=== PATIENT | male | born 1975 | race American Indian/Alaskan Native ===

== ENCOUNTER 2019-12-24 18:00 | Emergency (ER) | payer SELFPAY ==
[2019-12-24] MEDS ORDERED: ASPIRIN 81 MG TAB CHEW PO ONE (18:03)
--- NOTE | 2019-12-24 18:12 | Event Note ---
ED Screening Note Date of service: 12/24/19 Time: 18:11 ED Screening Note: c/o chest pain x today worsening over the past hour denies past medical hx +SOB +swelling of feet pt holding left chest This initial assessment/diagnostic orders/clinical plan/treatment(s) is/are subject to change based on patients health status, clinical progression and re- assessment by fellow clinical providers in the ED. Further treatment and workup at subsequent clinical providers discretion. Patient/guardian urged not to elope from the ED as their condition may be serious if not clinically assessed and managed. Initial orders include: labs xr ekg
[2019-12-24 18:48] LABS: Basophils # (Auto) 0.1 K/mm3 (0.0-0.1); Eosinophils % (Auto) 0.7 % (0.0-4.3); Hematocrit 42.1 % (35.5-45.6); Hemoglobin 14.6 gm/dl (11.8-15.2); Lymphocytes # (Auto) 2.4 K/mm3 (1.2-5.4); Lymphocytes % (Auto) 34.7 % (13.4-35.0); Mean Corpuscular HGB Conc 35 % (32-34); Mean Corpuscular Volume 99 fl (84-94); Monocytes # (Auto) 0.6 K/mm3 (0.0-0.8); Monocytes % (Auto) 9.2 % (0.0-7.3); Platelet Count 292 K/mm3 (140-440); Red Blood Count 4.25 M/mm3 (3.65-5.03); Red Cell Distribution Width 13.6 % (13.2-15.2)
[2019-12-24 19:06] LABS: BUN/Creatinine Ratio 8; Blood Urea Nitrogen 8 mg/dL (9-20); Calcium 9.1 mg/dL (8.4-10.2); Hemolysis Index 9
--- NOTE | 2019-12-24 19:09 | XRay Report ---
CHEST 2 VIEWS 1851 INDICATION / CLINICAL INFORMATION: Chest Pain COMPARISON: None available. FINDINGS: SUPPORT DEVICES: None. HEART / MEDIASTINUM: No significant abnormality. LUNGS / PLEURA: No significant pulmonary or pleural abnormality. No pneumothorax. ADDITIONAL FINDINGS: No significant additional findings. IMPRESSION: No significant acute abnormality Signer Name: Tobin Shook MD Signed: 12/24/2019 7:05 PM Workstation Name: [id number]
[2019-12-24 19:10] LABS: Alanine Aminotransferase 80 units/L (7-56); Albumin 4.7 g/dL (3.9-5)
[2019-12-24 19:30] LABS: Bilirubin,Direct < 0.2 mg/dL (0-0.2)
[2019-12-24] MEDS ORDERED: IPRATROPIUM/ALBUTEROL SULFATE 3 ML AMPUL.NEB IH ONE (22:32)
[2019-12-24] MEDS ORDERED: KETOROLAC 30 MG/1 ML INJ IM ONE (22:32)
--- NOTE | 2019-12-24 22:36 | Emergency Department Report ---
ED Chest Pain HPI - General Chief Complaint: Chest Pain Stated Complaint: CHEST PAINS Time Seen by Provider: 12/24/19 22:22 Source: patient Mode of arrival: Ambulatory Limitations: No Limitations - History of Present Illness Initial Comments: This is a 44-year-old -[place] male presents to the emergency department from home with complaint of midsternal chest pain and shortness of breath that started this morning upon waking. He says that the pain is currently a 6 out of 10 in intensity and is a sharp pain/sensation. It is exacerbated by certain movements of his torso. No known alleviating factors. He did not take anything for symptoms prior to presentation. He denies any radiation of the pain, back pain, nausea, vomiting, diaphoresis, cough, lower extremity swelling. He denies any past medical history. He is a tobacco smoker but denies any illicit drug use. No family history of early heart attack or cardiac events. No recent travel or sick contacts at home. - Related Data Previous Rx's Medication Instructions Recorded Last Taken Type Albuterol Mdi (or & Nicu Only) 2 puff IH QID PRN #8.5 gram 12/24/19 Unknown Rx [ProAir HFA Inhaler] Allergies Allergy/AdvReac Type Severity Reaction Status Date / Time No Known Allergies Allergy Unverified 12/24/19 18:05 Heart Score - HEART Score History: Slightly suspicious EKG: Normal Age: < 45 Risk factors: 1-2 risk factors Troponin: < normal limit HEART Score: 1 - Critical Actions Critical Actions: 0-3 pts:0.9-1.7%risk of adverse cardiac event.Candidate for discharge ED Review of Systems ROS: Stated complaint: CHEST PAINS Other details as noted in HPI Comment: All other systems reviewed and negative Constitutional: denies: chills, fever Eyes: denies: eye pain, vision change ENT: denies: ear pain, throat pain Respiratory: shortness of breath. denies: cough Cardiovascular: chest pain. denies: palpitations, edema Gastrointestinal: denies: abdominal pain, vomiting Genitourinary: denies: dysuria, discharge Musculoskeletal: denies: back pain, arthralgia Skin: denies: rash, lesions Neurological: denies: headache, weakness ED Past Medical Hx - Past Medical History Previous Medical History?: No - Surgical History Past Surgical History?: No - Medications Home Medications: Home Medications Medication Instructions Recorded Confirmed Last Taken Type Albuterol Mdi (or & Nicu Only) 2 puff IH QID PRN #8.5 gram 12/24/19 Unknown Rx [ProAir HFA Inhaler] ED Physical Exam - General Limitations: No Limitations - Other Other exam information: GENERAL: The patient is well-developed well-nourished. HENT: Normocephalic. Atraumatic. Patient has moist mucous membranes. EYES: Extraocular motions are intact. NECK: Supple. Trachea is midline. CHEST/LUNGS: Clear to auscultation. There is no respiratory distress noted. There is reproducible tenderness to palpation along the midsternal chest wall. No crepitus or deformity. HEART/CARDIOVASCULAR: Regular. There is no tachycardia. There is no murmur. ABDOMEN: Abdomen is soft, nontender. Patient has normal bowel sounds. SKIN: Skin is warm and dry. NEURO: The patient is awake, alert, and oriented. The patient is cooperative. The patient has no focal neurologic deficits. Normal speech. MUSCULOSKELETAL: There is no tenderness or deformity. There is no limitation range of motion. ED Course Vital Signs 12/24/19 12/24/19 12/24/19 18:22 22:46 23:51 Temperature 98.8 F 98.9 F Pulse Rate 88 73 Pulse Rate [ 80 Bilateral Throughout] Respiratory 24 73 H Rate Respiratory 18 Rate [Bilateral Throughout] Blood Pressure 174/108 151/93 [Right] O2 Sat by Pulse 97 99 Oximetry 12/25/19 00:02 Temperature Pulse Rate Pulse Rate [ Bilateral Throughout] Respiratory 18 Rate Respiratory Rate [Bilateral Throughout] Blood Pressure [Right] O2 Sat by Pulse 99 Oximetry ABRAM score - Abram Score Age > 65: (0) No Aspirin use within the Past 7 Days: (0) No 3 or more CAD Risk Factors: (0) No 2 or more Angina events in past 24 hrs: (1) Yes Known CAD with more than 50% Stenosis: (0) No Elevated Cardiac Markers: (0) No ST Deviation Greater than 0.5mm: (0) No ABRAM Score: 1 ED Medical Decision Making - Lab Data Result diagrams: 12/24/19 18:28 12/24/19 18:28 - EKG Data -: EKG Interpreted by Me EKG shows normal: sinus rhythm, axis, intervals, QRS complexes, ST-T waves Rate: normal - EKG Data When compared to previous EKG there are: previous EKG unavailable Interpretation: normal EKG - Radiology Data Radiology results: image reviewed interpreted by me: Chest x-ray does not show any acute process. There are no pleural effusions, obvious pneumonia and there is no pneumothorax. No significant cardiomegaly. - Medical Decision Making This patient presents to the emergency department with midsternal chest pain and shortness of breath that has been going on since this morning. On examination, his heart and lung sounds are normal to auscultation. His chest pain is reproducible to palpation of the midsternal chest wall without crepitus or deformity. An EKG was completed that does not have any morphology consistent with ST elevation NE, or any dysrhythmia. Labs have been unremarkable including CBC, metabolic panel and negative troponins x2. Patient was given a breathing treatment and a shot of Toradol and upon reevaluation he says he is feeling greatly improved. Vital signs are reassuring throughout his ED course including being afebrile. The patient is low on the heart and ABRAM scores. He does not have any risk factors consistent with thromboembolic disease. He is low on the Wells score criteria and negative on the pulmonary embolism rule out criteria. For all these reasons the patient appears safe for discharge home at this time. His contact information has been sent over to the [facility] and vascular moore, and someone from their office should be contacting him shortly for close outpatient follow-up as per our hospitals low risk chest pain protocol. He will return to the emergency department with any worsening of his symptoms or with any acute distress. Critical Care Time: No Critical care attestation.: If time is entered above; I have spent that time in minutes in the direct care of this critically ill patient, excluding procedure time. ED Disposition Clinical Impression: Elevated blood pressure reading Chest pain Qualifiers: Chest pain type: unspecified Qualified Code(s): R07.9 - Chest pain, unspecified Disposition: DC-01 TO HOME OR SELFCARE Is pt being admited?: No Condition: Stable Instructions: Chest Pain (ED), How to Stop Smoking (ED), Costochondritis (ED) Additional Instructions: Please follow-up with a primary care physician in the next few days. Please quit smoking. I have sent your contact information over to the [facility] and vascular center, and someone from their office should be contacting you shortly for close outpatient follow-up. Just in case, I have also given you a referral for one of their cardiologists, Dr. Hendricks, so that you can make an appointment if necessary. Return to the emergency department with any worsening of your symptoms, new or concerning symptoms not addressed during this current emergency department visit, or with any acute distress. Prescriptions: Albuterol Mdi (or & Nicu Only) [ProAir HFA Inhaler] 2 puff IH QID PRN #8.5 gram PRN Reason: Shortness Of Breath Referrals: PRIMARY CARE, [Primary Care Provider] - 2-3 Days MERI HENDRICKS MD [Staff Physician] - 2-3 Days Forms: Work/School Release Form(ED) Time of Disposition: 23:39
[2019-12-24 23:53] VITALS: BP 151/93
== END 2019-12-25 00:05 | disposition home or self-care (01) ==
LOC: ED 18:00
DX: R07.89 Other chest pain (principal); R06.02 Shortness of breath
CPT/HCPCS: 36415; 71046; 80048; 80076; 83880; 84484; 85025; 93005; 94644; 96372; 99285; J1885; 94640

== ENCOUNTER 2021-01-09 12:13 | Emergency (ER) | payer SELFPAY ==
[2021-01-09] MEDS ORDERED: SODIUM CHLORIDE 0.9% 1000 ML 1,000 ML IV ONE (12:21)
[2021-01-09] MEDS ORDERED: ONDANSETRON 4 MG/2 ML INJ IV ONE (12:21)
[2021-01-09] MEDS ORDERED: HYDROmorphone 1 MG/1 ML INJ IV ONE ×3 (12:22→15:06)
--- NOTE | 2021-01-09 12:29 | Emergency Department Report ---
ED General Adult HPI - General Chief complaint: Abdominal Pain Stated complaint: ABD PAIN PUI?: No Time Seen by Provider: 01/09/21 12:28 Source: patient, RN notes reviewed Mode of arrival: Ambulatory Limitations: No Limitations - History of Present Illness Initial comments: The patient is a 45-year-old gentleman. He has a history of alcohol induced pancreatitis. He was admitted to [facility] in the past for alcohol induced pancreatitis The patient presents to the ER today with complaint of "I think I have pancreatitis." The patient reports that he has been abstinent of alcohol, up until recently. He states that he has a bilateral mid back pain, which started yesterday, and radiates around to his left upper quadrant, and epigastric region, similar to prior episodes of pancreatitis. He was treated with hydromor phone, which much improved his symptoms. At the moment, he denies headache, neck pain, left-sided and central chest pain, he has right-sided chest discomfort, he still has persistent epigastric and b ilateral mid back abdominal pain, and no testicular pain or urinary symptoms. He denies Covid symptoms. -: Gradual, hour(s), days(s) Location: back Radiation: abdomen Quality: aching, other (Sharp) Consistency: constant Improves with: medication Worsens with: movement - Related Data Previous Rx's Medication Instructions Recorded Last Taken Type Albuterol Mdi (or & Nicu Only) 2 puff IH QID PRN #8.5 gram 12/24/19 Unknown Rx [ProAir HFA Inhaler] Allergies Allergy/AdvReac Type Severity Reaction Status Date / Time No Known Allergies Allergy Verified 01/09/21 12:24 ED Review of Systems ROS: Stated complaint: ABD PAIN Other details as noted in HPI Constitutional: denies: fever Eyes: denies: eye discharge ENT: denies: epistaxis Respiratory: denies: cough Cardiovascular: chest pain Gastrointestinal: abdominal pain, nausea, vomiting Genitourinary: denies: dysuria Musculoskeletal: back pain Neurological: denies: weakness Psychiatric: anxiety Hematological/Lymphatic: denies: easy bleeding ED Past Medical Hx - Past Medical History Previous Medical History?: No Additional medical history: denies - Surgical History Past Surgical History?: No Additional Surgical History: denies - Social History Smoking Status: Current Every Day Smoker - Medications Home Medications: Home Medications Medication Instructions Recorded Confirmed Last Taken Type Albuterol Mdi (or & Nicu Only) 2 puff IH QID PRN #8.5 gram 12/24/19 Unknown Rx [ProAir HFA Inhaler] ED Physical Exam - General Limitations: No Limitations General appearance: alert, in no apparent distress - Head Head exam: Present: atraumatic, normocephalic - Eye Eye exam: Present: normal appearance, EOMI. Absent: nystagmus - ENT ENT exam: Present: normal exam, normal orophraynx, mucous membranes moist, normal external ear exam - Neck Neck exam: Present: normal inspection, full ROM. Absent: tenderness, meningismus - Respiratory Respiratory exam: Present: normal lung sounds bilaterally. Absent: respiratory distress, wheezes, rales, rhonchi, stridor, decreased breath sounds - Cardiovascular Cardiovascular Exam: Present: regular rate, normal rhythm, normal heart sounds. Absent: bradycardia, tachycardia, irregular rhythm, systolic murmur, diastolic murmur, rubs, gallop - GI/Abdominal GI/Abdominal exam: Present: soft, tenderness, other (There is epigastric tenderness). Absent: distended, guarding, rebound, rigid, pulsatile mass - Rectal Rectal exam: Present: deferred - Extremities Exam Extremities exam: Present: normal inspection, full ROM, other (2+ pulses noted in the bilateral upper and lower extremities. There is no palpable cord. negative Homans sign. Muscular compartments are soft. The pelvis is stable.). Absent: calf tenderness - Back Exam Back exam: Present: normal inspection, full ROM. Absent: tenderness, CVA tenderness (R), CVA tenderness (L), paraspinal tenderness, vertebral tenderness - Neurological Exam Neurological exam: Present: alert, oriented X3, other (No facial droop. Tongue midline. Extraocular movements intact bilaterally. Facial sensation intact to light touch in V1, V2, V3 distribution bilaterally. 5 and a 5 strength in 4 extremities. Sensation intact to light touch in 4 extremities.). Absent: motor sensory deficit - Psychiatric Psychiatric exam: Present: anxious - Skin Skin exam: Present: warm, dry, intact, normal color. Absent: rash ED Course Vital Signs 01/09/21 01/09/21 01/09/21 12:21 12:47 13:01 Temperature 98.6 F Pulse Rate 68 72 68 Respiratory 18 24 20 Rate Blood Pressure 140/95 159/95 Blood Pressure 157/99 [Left] O2 Sat by Pulse 100 100 96 Oximetry 01/09/21 01/09/21 01/09/21 13:31 14:01 14:16 Temperature 98.5 F Pulse Rate 62 60 58 L Respiratory 17 20 20 Rate Blood Pressure 161/95 166/99 Blood Pressure 166/98 [Left] O2 Sat by Pulse 100 100 100 Oximetry - Reevaluation(s) Reevaluation #1: 01/09/21 14:15 Differential diagnosis, including but not limited to: Pancreatitis, GERD, gastritis, hiatal hernia, renal colic, pyelonephritis, Assessment and plan: 45-year-old gentleman, who is not currently tachycardic, tachypneic or hypoxic, who denies DVT and pulmonary embolism risk factors, who is low risk by Wells criteria for pulmonary embolism, who is PERC negative, low risk for major adverse cardiac event as per heart score, with known history of pancreatitis, presenting with prototypical pancreatitis symptoms, after consuming alcohol recently. He required hydromorphone for pain. Lipase is elevated. He denies urinary symptoms. EKG unremarkable for acute findings. Urinalysis, CT scan abdomen pelvis pending. Reassess after these have been completed. I discussed this with the patient. He articulated understanding. All questions answered. Reassess after acquisition of urinalysis and CT scan. 01/09/21 15:51 CT scan confirms pancreatitis. Awaiting urinalysis. Patient required multiple rounds of hydromorphone administration. He meets criteria for admission hospitalization secondary to acute pancreatitis, suggested on history, suggestion of laboratory studies and on CAT scan. Admitted to the care of [facility] physician, Dr. Hoff. Defer to inpatient team to follow-up on urinalysis. ED Medical Decision Making - Lab Data Result diagrams: 01/09/21 12:36 01/09/21 12:36 Vital Signs 01/09/21 12:47 Pulse Rate 72 Respiratory 24 Rate Blood Pressure 157/99 [Left] O2 Sat by Pulse 100 Oximetry Lab Results 01/09/21 01/09/21 01/09/21 Range/Units 12:36 12:36 12:36 WBC 7.1 (4.5-11.0) K/mm3 RBC 4.42 (3.65-5.03) M/mm3 Hgb 15.4 H (11.8-15.2) gm/dl Hct 44.7 (35.5-45.6) % MCV 101 H (84-94) fl MCH 35 H (28-32) pg MCHC 35 H (32-34) % RDW 13.2 (13.2-15.2) % Plt Count 311 (140-440) K/mm3 Lymph % (Auto) 19.6 (13.4-35.0) % Stevens % (Auto) 10.3 H (0.0-7.3) % Eos % (Auto) 0.4 (0.0-4.3) % Baso % (Auto) 0.7 (0.0-1.8) % Lymph # (Auto) 1.4 (1.2-5.4) K/mm3 Stevens # (Auto) 0.7 (0.0-0.8) K/mm3 Eos # (Auto) 0.0 (0.0-0.4) K/mm3 Baso # (Auto) 0.0 (0.0-0.1) K/mm3 Seg Neutrophils % 69.0 (40.0-70.0) % Seg Neutrophils # 4.9 (1.8-7.7) K/mm3 Sodium 136 L (137-145) mmol/L Potassium 4.4 (3.6-5.0) mmol/L Chloride 97.2 L (98-107) mmol/L Carbon Dioxide 22 (22-30) mmol/L Anion Gap 21 mmol/L BUN 7 L (9-20) mg/dL Creatinine 0.8 (0.8-1.3) mg/dL Estimated GFR > 60 ml/min BUN/Creatinine Ratio 9 % Glucose 129 H (75-100) mg/dL Calcium 9.5 (8.4-10.2) mg/dL Phosphorus 3.70 (2.5-4.5) mg/dL Magnesium 2.10 (1.7-2.3) mg/dL Total Bilirubin 0.40 (0.1-1.2) mg/dL AST 32 (5-40) units/L ALT 25 (7-56) units/L Alkaline Phosphatase 82 (35-129) units/L Total Protein 7.9 (6.3-8.2) g/dL Albumin 4.9 (3.9-5) g/dL Albumin/Globulin Ratio 1.6 % Lipase 446 H (13-60) units/L - EKG Data -: EKG Interpreted by [place] EKG shows normal: sinus rhythm Rate: normal - EKG Data 01/09/21 14:15 EKG is interpreted at 13: 10 Sinus rhythm, 61 bpm. Normal axis, normal intervals, high left ventricular voltage. Poor R wave progression. Abnormal EKG. Early repolarization. Not a STEMI - Radiology Data Radiology results: pending, report reviewed, image reviewed CT ABDOMEN AND PELVIS WITH CONTRAST INDICATION / CLINICAL INFORMATION: LUQ pain and tenderness.. TECHNIQUE: Axial CT images were obtained through the abdomen and pelvis after 100 cc Omnipaque [address] scans at this location are performed using CT dose reduction for ALARA by means of automated exposure control. COMPARISON: None available. FINDINGS: LOWER CHEST: No significant abnormality. LIVER: Hepatic steatosis. Scattered hypodensities throughout the liver are too small to characterize but likely represent cysts. GALLBLADDER: Mi ldly hyperdense material in the gallbladder likely represents sludge. No evidence of cholecystitis. BILE DUCTS: No significant abnormality. PANCREAS: There is peripancreatic stranding. No necrosis. There is unorganized mild fluid at the inferior aspect of pancreas. SPLEEN: No significant abnormality. ADRENALS: No significant abnormality. RIGHT KIDNEY / URETER: No significant abnormality. LEFT KIDNEY / URETER: No significant abnormality. STOMACH / SMALL BOWEL: No significant abnormality. COLON: No significant abnormality. APPENDIX: No significant abnormality. PERITONEUM: Mild free fluid around pancreas. No free air. LYMPH NODES: No significant adenopathy. AORTA / ARTERIES: No significant abnormality. IVC / VEINS: No significant abnormality. URINARY BLADDER: Mild urinary bladder wall thickening is nonspecific. REPRODUCTIVE ORGANS: No significant abnormality. ADDITIONAL FINDINGS: None. SKELETAL SYSTEM: No significant abnormality. IMPRESSION: 1. Findings suggestive of acute interstitial edematous pancreatitis. There is unorganized fluid inferior to the pancreas. No necrosis. 2. Hyperdense material in the gallbladder likely represents sludge. No evidence of cholecystitis. 3. Hepatic steatosis. Scattered hypodensities throughout liver are too small to characterize but likely represent cysts. 4. Mild thickening of urinary bladder wall is nonspecific. Recommend clinical correlation. Signer Name: Lucho Agee MD Signed: 01/09/2021 2:16 PM Workstation Name: [id number] Critical care attestation.: If time is entered above; I have spent that time in minutes in the direct care of this critically ill patient, excluding procedure time. ED Disposition Clinical Impression: Acute pancreatitis Disposition: 09 ADMITTED INPATIENT Is pt being admited?: Yes Does the pt Need Aspirin: No Condition: Good Referrals: PRIMARY CARE,MD [Primary Care Provider] - 3-5 Days
--- NOTE | 2021-01-09 12:30 | Event Note ---
ED Screening Note Date of service: 01/09/21 Time: 12:23 ED Screening Note: 45-year-old -[place] male presents to the emergency room in severe abdominal distress. Patient states that he has a history of pancreatitis and does admit to drinking. Patient has been to [place] and they told him that there is something wrong with his pancreas. Patient states that he does drink alcohol. He denies any nausea vomiting at this time. reports that he has a history of hypertension and is supposed to be on amlodipine but has not been taking it. This initial assessment/diagnostic orders/clinical plan/treatment(s) is/are subject to change based on patients health status, clinical progression and re- assessment by fellow clinical providers in the ED. Further treatment and workup at subsequent clinical providers discretion. Patient/guardian urged not to elope from the ED as their condition may be serious if not clinically assessed and managed. Initial orders include: CBC CMP lipase Phos mag INT CT abdomen with contrast normal saline morphine and Zofran has been ordered. Discussed case with Dr. Berg
[2021-01-09 13:17] LABS: Basophils % (Auto) 0.7 % (0.0-1.8); Eosinophils % (Auto) 0.4 % (0.0-4.3); Hematocrit 44.7 % (35.5-45.6); Hemoglobin 15.4 gm/dl (11.8-15.2); Lymphocytes # (Auto) 1.4 K/mm3 (1.2-5.4); Lymphocytes % (Auto) 19.6 % (13.4-35.0); Mean Corpuscular HGB Conc 35 % (32-34); Mean Corpuscular Volume 101 fl (84-94); Monocytes # (Auto) 0.7 K/mm3 (0.0-0.8); Monocytes % (Auto) 10.3 % (0.0-7.3); Platelet Count 311 K/mm3 (140-440); Red Blood Count 4.42 M/mm3 (3.65-5.03); Red Cell Distribution Width 13.2 % (13.2-15.2)
[2021-01-09 13:39] LABS: Alanine Aminotransferase 25 units/L (7-56); Albumin 4.9 g/dL (3.9-5); BUN/Creatinine Ratio 9; Blood Urea Nitrogen 7 mg/dL (9-20); Calcium 9.5 mg/dL (8.4-10.2); Hemolysis Index 16
--- NOTE | 2021-01-09 15:20 | Cat Scan Report ---
CT ABDOMEN AND PELVIS WITH CONTRAST INDICATION / CLINICAL INFORMATION: LUQ pain and tenderness.. TECHNIQUE: Axial CT images were obtained through the abdomen and pelvis after 100 cc Omnipaque [address] scans at this location are performed using CT dose reduction for ALARA by means of automated exposure control. COMPARISON: None available. FINDINGS: LOWER CHEST: No significant abnormality. LIVER: Hepatic steatosis. Scattered hypodensities throughout the liver are too small to characterize but likely represent cysts. GALLBLADDER: Mildly hyperdense material in the gallbladder likely represents sludge. No evidence of c holecystitis. BILE DUCTS: No significant abnormality. PANCREAS: There is peripancreatic stranding. No necrosis. There is unorganized mild fluid at the infe rior aspect of pancreas. SPLEEN: No significant abnormality. ADRENALS: No significant abnormality. RIGHT KIDNEY / URETER: No significant abnormality. LEFT KIDNEY / URETER: No significant abnormality. STOMACH / SMALL BOWEL: No significant abnormality. COLON: No significant abnormality. APPENDIX: No significant abnormality. PERITONEUM: Mild free fluid around pancreas. No free air. LYMPH NODES: No significant adenopathy. AORTA / ARTERIES: No significant abnormality. IVC / VEINS: No significant abnormality. URINARY BLADDER: Mild urinary bladder wall thickening is nonspecific. REPRODUCTIVE ORGANS: No significant abnormality. ADDITIONAL FINDINGS: None. SKELETAL SYSTEM: No significant abnormality. IMPRESSION: 1. Findings suggestive of acute interstitial edematous pancreatitis. There is unorganized fluid infer ior to the pancreas. No necrosis. 2. Hyperdense material in the gallbladder likely represents sludge. No evidence of cholecystitis. 3. Hepatic steatosis. Scattered hypodensities throughout liver are too small to characterize but like ly represent cysts. 4. Mild thickening of urinary bladder wall is nonspecific. Recommend clinical correlation. Signer Name: Lucho Agee MD Signed: 01/09/2021 3:16 PM Workstation Name: [id number]
[2021-01-09 16:30] LABS: Bilirubin,Urine NEG (Negative); Blood,Urine SM (Negative); Color,Urine Straw (Yellow); Mucus,Urine FEW /HPF; Protein,Urine <15 mg/dL mg/dL (Negative); Urobilinogen,Urine < 2.0 mg/dL (<2.0)
--- NOTE | 2021-01-09 18:30 | Event Note ---
Date: 01/09/21 45 YO Male with ETOH Dependence, Chronic recurrent ETOH Pancreatitis presents to ED for evaluation. Patient acknowledges ingestion of alcohol over the last 48 hours. Patient transported [facility] via private vehicle for further care and evaluation of the aforementioned symptoms. The patient seen and evaluated in the emergency department. All lab and imaging studies reviewed. Patient found to have symptoms consistent with chronic recurrent pancreatitis secondary to alcohol ingestion, and alcohol gastritis. Patient treated with IV fluid resusc itation therapy and supportive care with resolution of symptoms. Patient medically optimized and back to usual state of health. Patient tolerating oral diet. Patient counseled regarding abstinence from alcohol. Patient medically optimized and discharged home and instructed to follow-up with meeting with Alcoholics Anonymous today. Patient seen and evaluated prior to discharge no significant physical exam findings. ED Physical Exam - General Limitations: No Limitations General appearance: alert, in no apparent distress - Head Head exam: Present: atraumatic, normocephalic - Eye Eye exam: Present: normal appearance, EOMI. Absent: nystagmus - ENT ENT exam: Present: normal exam, normal orophraynx, mucous membranes moist, normal external ear exam - Neck Neck exam: Present: normal inspection, full ROM. Absent: tenderness, meningismus - Respiratory Respiratory exam: Present: normal lung sounds bilaterally. Absent: respiratory distress, wheezes, rales, rhonchi, stridor, decreased breath sounds - Cardiovascular Cardiovascular Exam: Present: regular rate, normal rhythm, normal heart sounds. Absent: bradycardia, tachycardia, irregular rhythm, systolic murmur, diastolic murmur, rubs, gallop - GI/Abdominal GI/Abdominal exam: Present: soft, nontender nondistended positive bowel sounds. ). Absent: distended, guarding, rebound, rigid, pulsatile mass, flank discoloration - Rectal Rectal exam: Present: deferred - Extremities Exam Extremities exam: Present: normal inspection, full ROM, other (2+ pulses noted in the bilateral upper and lower extremities. There is no palpable cord. negative Homans sign. Muscular compartments are soft. The pelvis is stable.). Absent: calf tenderness - Back Exam Back exam: Present: normal inspection, full ROM. Absent: tenderness, CVA tenderness (R), CVA tenderness (L), paraspinal tenderness, vertebral tenderness - Neurological Exam Neurological exam: Present: alert, oriented X3, other (No facial droop. Tongue midline. Extraocular movements intact bilaterally. Facial sensation intact to light touch in V1, V2, V3 distribution bilaterally. 5 and a 5 strength in 4 extremities. Sensation intact to light touch in 4 extremities.). Absent: motor sensory deficit - Psychiatric Psychiatric exam: Unremarkable - Skin Skin exam: Present: warm, dry, intact, normal color. Absent: rash
[2021-01-09 20:05] VITALS: BP 151/82
--- NOTE | 2021-01-11 11:38 | Electrocardiograph Report ---
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
== END 2021-01-09 19:00 | disposition admitted as inpatient to this hospital (09) ==
LOC: ED 12:13
DX: K85.90 Acute pancreatitis without necrosis or infection, unspecified (principal); F17.200 Nicotine dependence, unspecified, uncomplicated; Z79.899 Other long term (current) drug therapy
CPT/HCPCS: 36415; 74177; 80053; 81001; 83690; 83735; 84100; 84484; 85025; 93005; 96361; 96374; 96375; 96376; 99284; J1170; J2405; J7030; Q9967

== ENCOUNTER 2021-04-01 08:07 | Observation (INO) | payer SELFPAY ==
[2021-04-01] MEDS ORDERED: ONDANSETRON 4 MG/2 ML INJ IV ONE (08:52)
[2021-04-01] MEDS ORDERED: SODIUM CHLORIDE 0.9% 1000 ML 1,000 ML IV ONE (08:52)
[2021-04-01] MEDS ORDERED: MORPHINE 4 MG/1 ML INJ IV ONE ×2 (08:52→12:55)
[2021-04-01] MEDS ORDERED: PANTOPRAZOLE 40 MG INJ IV ONE (08:53)
--- NOTE | 2021-04-01 08:53 | Emergency Department Report ---
ED General Adult HPI - General Chief complaint: Abdominal Pain Stated complaint: It feels like my pancreas Time Seen by Provider: 04/01/21 08:40 Source: patient, RN notes reviewed, old records reviewed Mode of arrival: Ambulatory Limitations: No Limitations - History of Present Illness Initial comments: The patient was evaluated in the emergency department for symptoms described in the history of present illness. He/she was evaluated in the context of the global COVID-19 pandemic, which necessitated consideration that the patient might be at risk for infection with the virus that causes COVID-19. Institutional protocols and algorithms that pertain to the evaluation of patients at risk for COVID-19 are in a state of rapid change based on inform ation released by regulatory bodies including the CDC and federal and state organizations. These policies and algorithms were followed during the patient's care in the emergency department. Please note that these policies, procedures and recommendations changed on a rapid basis. The patient is a 46-year-old gentleman, who I have evaluated in the past, who presents to the ER with a complaint of epigastric abdominal pain that radiates to the back, and substernal chest pressure. He denies travel, surgery, immobilization, DVT/PE risk factors. He reports this feels similar to his prior episodes of pancreatitis. He denies urinary symptoms, and denies recent alcohol consumption -: Gradual, days(s) Location: abdomen Radiation: back Quality: aching Consistency: constant Improves with: rest Worsens with: movement - Related Data Previous Rx's Medication Instructions Recorded Last Taken Type Albuterol Mdi (or & Nicu Only) 2 puff IH QID PRN #8.5 gram 12/24/19 Unknown Rx [ProAir HFA Inhaler] Folic Acid [Folvite] 1 mg PO QDAY #30 tablet 01/09/21 Unknown Rx Multivitamin 1 each PO DAILY #30 tablet 01/09/21 Unknown Rx Oxycodone HCl [oxyCODONE] 10 mg PO BID #20 tablet 01/09/21 Unknown Rx Pantoprazole [Protonix TAB] 20 mg PO QDAY #30 tablet 01/09/21 Unknown Rx Sucralfate [Carafate] 1 gm PO ACHS #30 tablet 01/09/21 Unknown Rx Thiamine [Vitamin B-1] 100 mg PO QDAY #30 tablet 01/09/21 Unknown Rx Allergies Allergy/AdvReac Type Severity Reaction Status Date / Time No Known Allergies Allergy Verified 04/01/21 08:16 ED Review of Systems ROS: Stated complaint: ABD PAIN,SOB X2 DAYS Other details as noted in HPI Constitutional: denies: fever Eyes: denies: vision change ENT: denies: epistaxis Respiratory: denies: cough Cardiovascular: chest pain Gastrointestinal: abdominal pain, nausea Genitourinary: denies: dysuria Musculoskeletal: back pain Neurological: denies: weakness ED Past Medical Hx - Past Medical History Additional medical history: denies - Surgical History Additional Surgical History: denies - Social History Smoking Status: Current Every Day Smoker - Medications Home Medications: Home Medications Medication Instructions Recorded Confirmed Last Taken Type Albuterol Mdi (or & Nicu Only) 2 puff IH QID PRN #8.5 gram 12/24/19 Unknown Rx [ProAir HFA Inhaler] Folic Acid [Folvite] 1 mg PO QDAY #30 tablet 01/09/21 Unknown Rx Multivitamin 1 each PO DAILY #30 tablet 01/09/21 Unknown Rx Oxycodone HCl [oxyCODONE] 10 mg PO BID #20 tablet 01/09/21 Unknown Rx Pantoprazole [Protonix TAB] 20 mg PO QDAY #30 tablet.dr 01/09/21 Unknown Rx Sucralfate [Carafate] 1 gm PO ACHS #30 tablet 01/09/21 Unknown Rx Thiamine [Vitamin B-1] 100 mg PO QDAY #30 tablet 01/09/21 Unknown Rx ED Physical Exam - General Limitations: No Limitations General appearance: alert, in no apparent distress - Head Head exam: Present: atraumatic, normocephalic - Eye Eye exam: Present: normal appearance, EOMI. Absent: nystagmus - ENT ENT exam: Present: normal exam, normal orophraynx, mucous membranes moist, normal external ear exam - Neck Neck exam: Present: normal inspection, full ROM. Absent: tenderness, meningismus - Respiratory Respiratory exam: Present: normal lung sounds bilaterally. Absent: respiratory distress, wheezes, rales, rhonchi, stridor, decreased breath sounds - Cardiovascular Cardiovascular Exam: Present: regular rate, normal rhythm, normal heart sounds. Absent: bradycardia, tachycardia, irregular rhythm, systolic murmur, diastolic murmur, rubs, gallop - GI/Abdominal GI/Abdominal exam: Present: soft, tenderness, guarding. Absent: distended, rebo und, rigid, pulsatile mass - Rectal Rectal exam: Present: deferred - Extremities Exam Extremities exam: Present: normal inspection, full ROM, other (2+ pulses noted in the bilateral upper and lower extremities. There is no palpable cord. negative Homans sign. Muscular compartments are soft. The pelvis is stable.). Absent: pedal edema, calf tenderness - Back Exam Back exam: Present: normal inspection, full ROM. Absent: tenderness, CVA tenderness (R), CVA tenderness (L), paraspinal tenderness, vertebral tenderness - Neurological Exam Neurological exam: Present: alert, oriented X3, normal gait, other (No facial droop. Tongue midline. Extraocular movements intact bilaterally. Facial sensation intact to light touch in V1, V2, V3 distribution bilaterally. 5 and a 5 strength in 4 extremities. Sensation intact to light touch in 4 extremities.). Absent: motor sensory deficit - Psychiatric Psychiatric exam: Present: anxious - Skin Skin exam: Present: warm, dry, intact, normal color. Absent: rash ED Course Vital Signs 04/01/21 04/01/21 04/01/21 10:09 13:04 13:07 Temperature 98.1 F Pulse Rate 70 Respiratory 18 14 14 Rate Blood Pressure 160/98 [Left] O2 Sat by Pulse 100 Oximetry ED Medical Decision Making - Lab Data Result diagrams: 04/01/21 08:21 04/01/21 08:21 Vital Signs 04/01/21 10:09 Respiratory 18 Rate Lab Results 04/01/21 04/01/21 04/01/21 Range/Units 08:21 08:21 09:06 WBC 10.3 (4.5-11.0) K/mm3 RBC 5.05 H (3.65-5.03) M/mm3 Hgb 16.7 H (11.8-15.2) gm/dl Hct 49.6 H (35.5-45.6) % MCV 98 H (84-94) fl MCH 33 H (28-32) pg MCHC 34 (32-34) % RDW 12.8 L (13.2-15.2) % Plt Count 359 (140-440) K/mm3 Lymph % (Auto) 15.6 (13.4-35.0) % [place] % (Auto) 10.2 H (0.0-7.3) % Eos % (Auto) 0.2 (0.0-4.3) % Baso % (Auto) 0.2 (0.0-1.8) % Lymph # (Auto) 1.6 (1.2-5.4) K/mm3 [place] # (Auto) 1.1 H (0.0-0.8) K/mm3 Eos # (Auto) 0.0 (0.0-0.4) K/mm3 Baso # (Auto) 0.0 (0.0-0.1) K/mm3 Seg Neutrophils % 73.8 H (40.0-70.0) % Seg Neutrophils # 7.6 (1.8-7.7) K/mm3 Sodium 131 L (137-145) mmol/L Potassium 4.1 (3.6-5.0) mmol/L Chloride 92.5 L (98-107) mmol/L Carbon Dioxide 21 L (22-30) mmol/L Anion Gap 22 mmol/L BUN 10 (9-20) mg/dL Creatinine 0.8 (0.8-1.3) mg/dL Estimated GFR > 60 ml/min BUN/Creatinine Ratio 13 % Glucose 100 (75-100) mg/dL Calcium 10.4 H (8.4-10.2) mg/dL Magnesium (1.7-2.3) mg/dL Total Bilirubin 0.50 (0.1-1.2) mg/dL AST 19 (5-40) units/L ALT 11 (7-56) units/L Alkaline Phosphatase 80 (35-129) units/L Total Creatine Kinase (55-170) units/L Troponin T < 0.010 (0.00-0.029) ng/mL Total Protein 8.6 H (6.3-8.2) g/dL Albumin 4.8 (3.9-5) g/dL Albumin/Globulin Ratio 1.3 % Lipase (13-60) units/L Urine Color (Yellow) Urine Turbidity (Clear) Urine pH (5.0-7.0) Ur Specific [place] (1.003-1.030) Urine Protein (Negative) mg/dL Urine Glucose (UA) (Negative) mg/dL Urine Ketones (Negative) mg/dL Urine Blood (Negative) Urine Nitrite (Negative) Urine Bilirubin (Negative) Urine Urobilinogen (<2.0) mg/dL Ur Leukocyte Esterase (Negative) Urine WBC (Auto) (0.0-6.0) /HPF Urine RBC (Auto) (0.0-6.0) /HPF U Epithel Cells (Auto) (0-13.0) /HPF Urine Mucus /HPF 04/01/21 04/01/21 Range/Units 09:06 Unknown WBC (4.5-11.0) K/mm3 RBC (3.65-5.03) M/mm3 Hgb (11.8-15.2) gm/dl Hct (35.5-45.6) % MCV (84-94) fl MCH (28-32) pg MCHC (32-34) % RDW (13.2-15.2) % Plt Count (140-440) K/mm3 Lymph % (Auto) (13.4-35.0) % [place] % (Auto) (0.0-7.3) % Eos % (Auto) (0.0-4.3) % Baso % (Auto) (0.0-1.8) % Lymph # (Auto) (1.2-5.4) K/mm3 [place] # (Auto) (0.0-0.8) K/mm3 Eos # (Auto) (0.0-0.4) K/mm3 Baso # (Auto) (0.0-0.1) K/mm3 Seg Neutrophils % (40.0-70.0) % Seg Neutrophils # (1.8-7.7) K/mm3 Sodium (137-145) mmol/L Potassium (3.6-5.0) mmol/L Chloride (98-107) mmol/L Carbon Dioxide (22-30) mmol/L Anion Gap mmol/L BUN (9-20) mg/dL Creatinine (0.8-1.3) mg/dL Estimated GFR ml/min BUN/Creatinine Ratio % Glucose (75-100) mg/dL Calcium (8.4-10.2) mg/dL Magnesium 2.00 (1.7-2.3) mg/dL Total Bilirubin (0.1-1.2) mg/dL AST (5-40) units/L ALT (7-56) units/L Alkaline Phosphatase (35-129) units/L Total Creatine Kinase 171 H (55-170) units/L Troponin T (0.00-0.029) ng/mL Total Protein (6.3-8.2) g/dL Albumin (3.9-5) g/dL Albumin/Globulin Ratio % Lipase 1681 H (13-60) units/L Urine Color Yellow (Yellow) Urine Turbidity Clear (Clear) Urine pH 5.0 (5.0-7.0) Ur Specific [place] 1.021 (1.003-1.030) Urine Protein 100 mg/dl (Negative) mg/dL Urine Glucose (UA) Neg (Negative) mg/dL Urine Ketones 20 (Negative) mg/dL Urine Blood Mod (Negative) Urine Nitrite Neg (Negative) Urine Bilirubin Neg (Negative) Urine Urobilinogen < 2.0 (<2.0) mg/dL Ur Leukocyte Esterase Neg (Negative) Urine WBC (Auto) 3.0 (0.0-6.0) /HPF Urine RBC (Auto) 1.0 (0.0-6.0) /HPF U Epithel Cells (Auto) 1.0 (0-13.0) /HPF Urine Mucus Few /HPF - EKG Data -: EKG Interpreted by Fl - EKG Data 04/01/21 12:56 The EKG is interpreted at 08: 51 Sinus rhythm, rate 74 bpm. Normal axis, normal intervals, high left ventricular voltage. Abnormal EKG. Not a STEMI. Unchanged from prior EKG from January 2021 - Radiology Data Radiology results: pending, report reviewed, image reviewed CT ABDOMEN AND PELVIS WITH CONTRAST INDICATION / CLINICAL INFORMATION: acute abd pain n/v, hx of pancreatitis 100 ML OMNI 300 . TECHNIQUE: Axial CT images were obtained through the abdomen and pelvis after 100 cc of Omnipaque 300 IV contrast. Sagittal and coronal reformatted images. All CT scans at this location are performed using CT dose reduction for ALARA by means of automated exposure control. COMPARISON: 01/09/2021 FINDINGS: LOWER CHEST: No significant abnormality. LIVER: No significant abnormality. Few scattered subcentimeter liver cysts are unchanged. Steatosis of the liver appears decreased. GALLBLADDER: No significant abnormality. BILE DUCTS: No significant abnormality. PANCREAS: There is a mild degree of fluid surrounding the pancreas. The pancreatic parenchyma is unremarkable with no evidence for mass, ductal dilatation or necrosis. SPLEEN: No significant abnormality. ADRENALS: No significant abnormality. RIGHT KIDNEY and URETER: No significant abnormality. LEFT KIDNEY and URETER: No significant abnormality. STOMACH and SMALL BOWEL: No significant abnormality. COLON: No significant abnormality. APPENDIX: No significant abnormality. PERITONEUM: No free air. No fluid collection. LYMPH NODES: No significant adenopathy. AORTA and ARTERIES: No significant abnormality. IVC and VEINS: No significant abnormality. URINARY BLADDER: No significant abnormality. REPRODUCTIVE ORGANS: No significant abnormality. ADDITIONAL FINDINGS: None. SKELETAL SYSTEM: No significant abnormality. IMPRESSION: Acute interstitial pancreatitis. Signer Name: Onofre Moss Jr, MD Signed: 04/01/2021 9:47 AM Workstation Name: [id number] CHEST 2 VIEWS INDICATION / CLINICAL INFORMATION: Chest pain. COMPARISON: 12/24/19. FINDINGS: SUPPORT DEVICES: None. HEART / MEDIASTINUM: The heart size and pulmonary vasculature are normal. The aorta is normal in caliber. LUNGS / PLEURA: Minimal linear scarring in the substernal region on the lateral view is stable. No new pulmonary or pleural abnormality is seen. No pneumothorax. ADDITIONAL FINDINGS: There is mild thoracolumbar scoliosis. IMPRESSION: No acute abnormality or significant change. Signer Name: Rashad Martinez MD Signed: 04/01/2021 8:20 AM Workstation Name: [id number] - Medical Decision Making Differential diagnosis, including but not limited to: GERD, gastritis, hiatal hernia, pneumonia, costochondritis, pancreatitis, coronary artery disease Assessment and plan: 46-year-old gentleman, who is not currently tachycardic, tachypneic or hypoxic, who denies DVT and pulmonary embolism risk factors, who is low risk by Wells criteria for pulmonary embolism, EKG unchanged from prior, troponin negative x1, in the context of a few hours to days of symptoms, with elevated lipase, and CT scan of the abdomen pelvis and history suggestive of juan creatitis. Patient has equal pulses in the upper and lower extremities, no pulsatile abdominal mass, and an unremarkable x-ray of the chest, therefore, aortic disease is very unlikely. Patient at low risk for major adverse cardiac event as per heart score. Suspect that patient has acute pancreatitis. He is clinically sober at this time. I recommend admission to the medical service for acute pancreatitis. I have discussed this with the patient. He is agreeable to this plan of care. Hospital physician, Dr. Jean Baptiste to admit patient to the medical service. Critical care attestation.: If time is entered above; I have spent that time in minutes in the direct care o f this critically ill patient, excluding procedure time. ED Disposition Clinical Impression: Acute pancreatitis Disposition: ADMITTED INPATIENT Is pt being admited?: Yes Does the pt Need Aspirin: No Condition: Good Heart Score - HEART Score History: Slightly suspicious EKG: Non-specific Age: 45-65 Risk factors: 1-2 risk factors Troponin: < normal limit HEART Score: 3 - EKG Read Time Time EKG Completed: 08:51 EKG Read Time: 08:51
[2021-04-01 09:19] LABS: Basophils % (Auto) 0.2 % (0.0-1.8); Eosinophils % (Auto) 0.2 % (0.0-4.3); Hematocrit 49.6 % (35.5-45.6); Hemoglobin 16.7 gm/dl (11.8-15.2); Lymphocytes # (Auto) 1.6 K/mm3 (1.2-5.4); Lymphocytes % (Auto) 15.6 % (13.4-35.0); Mean Corpuscular HGB Conc 34 % (32-34); Mean Corpuscular Volume 98 fl (84-94); Monocytes # (Auto) 1.1 K/mm3 (0.0-0.8); Monocytes % (Auto) 10.2 % (0.0-7.3); Platelet Count 359 K/mm3 (140-440); Red Blood Count 5.05 M/mm3 (3.65-5.03); Red Cell Distribution Width 12.8 % (13.2-15.2)
--- NOTE | 2021-04-01 09:24 | XRay Report ---
CHEST 2 VIEWS INDICATION / CLINICAL INFORMATION: Chest pain. COMPARISON: 12/24/19. FINDINGS: SUPPORT DEVICES: None. HEART / MEDIASTINUM: The heart size and pulmonary vasculature are normal. The aorta is normal in isidoro sonya. LUNGS / PLEURA: Minimal linear scarring in the substernal region on the lateral view is stable. No ne w pulmonary or pleural abnormality is seen. No pneumothorax. ADDITIONAL FINDINGS: There is mild thoracolumbar scoliosis. IMPRESSION: No acute abnormality or significant change. Signer Name: Rashad Martinez MD Signed: 04/01/2021 9:20 AM Workstation Name: [id number]
[2021-04-01 09:41] LABS: BUN/Creatinine Ratio 13; Blood Urea Nitrogen 10 mg/dL (9-20); Calcium 10.4 mg/dL (8.4-10.2)
[2021-04-01 09:42] LABS: Alanine Aminotransferase 11 units/L (7-56); Albumin 4.8 g/dL (3.9-5); Hemolysis Index 2
--- NOTE | 2021-04-01 10:51 | Cat Scan Report ---
CT ABDOMEN AND PELVIS WITH CONTRAST INDICATION / CLINICAL INFORMATION: acute abd pain n/v, hx of pancreatitis 100 ML OMNI 300 . TECHNIQUE: Axial CT images were obtained through the abdomen and pelvis after 100 cc of Omnipaque 300 IV contras t. Sagittal and coronal reformatted images. All CT scans at this location are performed using CT dose reduction for ALARA by means of automated exposure control. COMPARISON: 01/09/2021 FINDINGS: LOWER CHEST: No significant abnormality. LIVER: No significant abnormality. Few scattered subcentimeter liver cysts are unchanged. Steatosis o f the liver appears decreased. GALLBLADDER: No significant abnormality. BILE DUCTS: No significant abnormality. PANCREAS: There is a mild degree of fluid surrounding the pancreas. The pancreatic parenchyma is unre markable with no evidence for mass, ductal dilatation or necrosis. SPLEEN: No significant abnormality. ADRENALS: No significant abnormality. RIGHT KIDNEY and URETER: No significant abnormality. LEFT KIDNEY and URETER: No significant abnormality. STOMACH and SMALL BOWEL: No significant abnormality. COLON: No significant abnormality. APPENDIX: No significant abnormality. PERITONEUM: No free air. No fluid collection. LYMPH NODES: No significant adenopathy. AORTA and ARTERIES: No significant abnormality. IVC and VEINS: No significant abnormality. URINARY BLADDER: No significant abnormality. REPRODUCTIVE ORGANS: No significant abnormality. ADDITIONAL FINDINGS: None. SKELETAL SYSTEM: No significant abnormality. IMPRESSION: Acute interstitial pancreatitis. Signer Name: Onofre Moss Jr, MD Signed: 04/01/2021 10:47 AM Workstation Name: [id number]
[2021-04-01 11:15] LABS: Bilirubin,Urine NEG (Negative); Blood,Urine MOD (Negative); Color,Urine Yellow (Yellow); Mucus,Urine FEW /HPF; Urobilinogen,Urine < 2.0 mg/dL (<2.0)
[2021-04-01] MEDS ORDERED: MORPHINE 2 MG/1 ML INJ IV PRN (12:52)
[2021-04-01] MEDS ORDERED: ONDANSETRON 4 MG/2 ML INJ IV PRN (12:52)
[2021-04-01] MEDS ORDERED: ACETAMINOPHEN 325 MG TAB PO PRN (12:52)
--- NOTE | 2021-04-01 12:59 | History and Physical Report ---
History of Present Illness Date of examination: 04/01/21 History of present illness: HPI: 46 yo male with pmhx of pancreatitis and alcoholism presenting to our facility for what he described as 12/14 abd pain radiating throughout his abdomen. Pain started 3 days ago and he has subsequently had a poor appetite during this time. It is assoicated with progressively worsening nausea, vomiting. He denied any fevers, chills, chest pain. He does state he feels fatigued due to lack of po intake. Remainder of ROS negative except for stated above. 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 in [facility] Medications and Allergies Allergies Allergy/AdvReac Type Severity Reaction Status Date / Time No Known Allergies Allergy Verified 04/01/21 08:16 Home Medications Medication Instructions Recorded Confirmed Last Taken Type Albuterol Mdi (or & Nicu Only) 2 puff IH QID PRN #8.5 gram 12/24/19 Unknown Rx [ProAir HFA Inhaler] Folic Acid [Folvite] 1 mg PO QDAY #30 tablet 01/09/21 Unknown Rx Multivitamin 1 each PO DAILY #30 tablet 01/09/21 Unknown Rx Oxycodone HCl [oxyCODONE] 10 mg PO BID #20 tablet 01/09/21 Unknown Rx Pantoprazole [Protonix TAB] 20 mg PO QDAY #30 tablet. 01/09/21 Unknown Rx Sucralfate [Carafate] 1 gm PO ACHS #30 tablet 01/09/21 Unknown Rx Thiamine [Vitamin B-1] 100 mg PO QDAY #30 tablet 01/09/21 Unknown Rx Active Meds: Active Medications Acetaminophen (Acetaminophen 325 Mg Tab) 650 mg PO Q4H PRN PRN Reason: Pain MILD(1-3)/Fever >100.5/CUMMINS Enoxaparin Sodium (Enoxaparin 40 Mg/0.4 Ml Inj) 40 mg SUB-Q QDAY DAVID Sodium Chloride (Nacl 0.9% 1000 Ml) 1,000 mls @ 100 mls/hr IV DIRECT DAVID Morphine Sulfate (Morphine 2 Mg/1 Ml Inj) 2 mg IV Q4H PRN PRN Reason: Pain, Moderate (4-6) Ondansetron HCl (Ondansetron 4 Mg/2 Ml Inj) 4 mg IV Q8H PRN PRN Reason: Nausea And Vomiting Sodium Chloride (Sodium Chloride 0.9% 10 Ml Flush Syringe) 10 ml IV BID DAVID Sodium Chloride (Sodium Chloride 0.9% 10 Ml Flush Syringe) 10 ml IV PRN PRN PRN Reason: LINE FLUSH Review of Systems All systems: negative Gastrointestinal: abdominal pain, nausea, vomiting Exam - Physical Exam Narrative exam: Physical Exam: VITAL SIGNS: Reviewed. GENERAL: The patient appears normally developed, Vital signs as documented. HEAD: No signs of head trauma. EYES: Pupils are equal. Extraocular motions intact. EARS: Hearing grossly intact. MOUTH: Oropharynx is normal. NECK: No adenopathy, no JVD. CHEST: Chest with clear breath sounds bilaterally. No wheezes, rales, or rhonchi. CARDIAC: Regular rate and rhythm. S1 and S2, without murmurs, gallops, or rubs. VASCULAR: No Edema. Peripheral pulses normal and equal in all extremities. ABDOMEN: Soft, non tender and non distended. No rebound or guarding, and no masses palpated. Bowel Sounds normal. MUSCULOSKELETAL: Good range of motion of all major joints. Extremities without clubbing, cyanosis or edema. NEUROLOGIC EXAM: Alert and oriented x 4. no focal sensory or strength deficits. PSYCHIATRIC: Mood normal. SKIN: detail exam as documented in skin assessment - Constitutional Vitals: Temp Pulse Resp BP Pulse Ox 18 04/01/21 10:09 HEART Score - HEART Score Troponin: Troponin T < 0.010 ng/mL (0.00-0.029) 04/01/21 09:06 Results - Labs CBC & Chem 7: 04/01/21 08:21 04/01/21 08:21 Labs: Laboratory Last Values WBC 10.3 K/mm3 (4.5-11.0) 04/01/21 08:21 RBC 5.05 M/mm3 (3.65-5.03) H 04/01/21 08:21 Hgb 16.7 gm/dl (11.8-15.2) H 04/01/21 08:21 Hct 49.6 % (35.5-45.6) H 04/01/21 08:21 MCV 98 fl (84-94) H 04/01/21 08:21 MCH 33 pg (28-32) H 04/01/21 08:21 MCHC 34 % (32-34) 04/01/21 08:21 RDW 12.8 % (13.2-15.2) L 04/01/21 08:21 Plt Count 359 K/mm3 (140-440) 04/01/21 08:21 Lymph % (Auto) 15.6 % (13.4-35.0) 04/01/21 08:21 [place] % (Auto) 10.2 % (0.0-7.3) H 04/01/21 08:21 Eos % (Auto) 0.2 % (0.0-4.3) 04/01/21 08:21 Baso % (Auto) 0.2 % (0.0-1.8) 04/01/21 08:21 Lymph # (Auto) 1.6 K/mm3 (1.2-5.4) 04/01/21 08:21 [place] # (Auto) 1.1 K/mm3 (0.0-0.8) H 04/01/21 08:21 Eos # (Auto) 0.0 K/mm3 (0.0-0.4) 04/01/21 08:21 Baso # (Auto) 0.0 K/mm3 (0.0-0.1) 04/01/21 08:21 Seg Neutrophils % 73.8 % (40.0-70.0) H 04/01/21 08:21 Seg Neutrophils # 7.6 K/mm3 (1.8-7.7) 04/01/21 08:21 Sodium 131 mmol/L (137-145) L 04/01/21 08:21 Potassium 4.1 mmol/L (3.6-5.0) 04/01/21 08:21 Chloride 92.5 mmol/L (98-107) L 04/01/21 08:21 Carbon Dioxide 21 mmol/L (22-30) L 04/01/21 08:21 Anion Gap 22 mmol/L 04/01/21 08:21 BUN 10 mg/dL (9-20) 04/01/21 08:21 Creatinine 0.8 mg/dL (0.8-1.3) 04/01/21 08:21 Estimated GFR > 60 ml/min 04/01/21 08:21 BUN/Creatinine Ratio 13 % 04/01/21 08:21 Glucose 100 mg/dL (75-100) 04/01/21 08:21 Calcium 10.4 mg/dL (8.4-10.2) H 04/01/21 08:21 Magnesium 2.00 mg/dL (1.7-2.3) 04/01/21 09:06 Total Bilirubin 0.50 mg/dL (0.1-1.2) 04/01/21 08:21 AST 19 units/L (5-40) 04/01/21 08:21 ALT 11 units/L (7-56) 04/01/21 08:21 Alkaline Phosphatase 80 units/L (35-129) 04/01/21 08:21 Total Creatine Kinase 171 units/L (55-170) H 04/01/21 09:06 Troponin T < 0.010 ng/mL (0.00-0.029) 04/01/21 09:06 Total Protein 8.6 g/dL (6.3-8.2) H 04/01/21 08:21 Albumin 4.8 g/dL (3.9-5) 04/01/21 08:21 Albumin/Globulin Ratio 1.3 % 04/01/21 08:21 Lipase 1681 units/L (13-60) H 04/01/21 09:06 Urine Color Yellow (Yellow) 04/01/21 Unknown Urine Turbidity Clear (Clear) 04/01/21 Unknown Urine pH 5.0 (5.0-7.0) 04/01/21 Unknown Ur Specific [place] 1.021 (1.003-1.030) 04/01/21 Unknown Urine Protein 100 mg/dl mg/dL (Negative) 04/01/21 Unknown Urine Glucose (UA) Neg mg/dL (Negative) 04/01/21 Unknown Urine Ketones 20 mg/dL (Negative) 04/01/21 Unknown Urine Blood Mod (Negative) 04/01/21 Unknown Urine Nitrite Neg (Negative) 04/01/21 Unknown Urine Bilirubin Neg (Negative) 04/01/21 Unknown Urine Urobilinogen < 2.0 mg/dL (<2.0) 04/01/21 Unknown Ur Leukocyte Esterase Neg (Negative) 04/01/21 Unknown Urine WBC (Auto) 3.0 /HPF (0.0-6.0) 04/01/21 Unknown Urine RBC (Auto) 1.0 /HPF (0.0-6.0) 04/01/21 Unknown U Epithel Cells (Auto) 1.0 /HPF (0-13.0) 04/01/21 Unknown Urine Mucus Few /HPF 04/01/21 Unknown Assessment and Plan Assessment and plan: #Acute pancreatitis - N/V/abd pain. prior admit for pancreatitis. - Lipase 1681 - CTAP confirmed acute interstitial pancreatitis - no abnl noted in gallbladder on ct. ALP in range, no bili elevation. doubt gallstone etiology - IV Fluids - IV zofran for nausea, IV morphine for pain control - NPO --> CLD --> regular diet. advance diet as tolerated. #Hyponatremia - NS IV #Dehydration - hyponatremia, hyperchloremia, hemoconcetrated - NS IV #Alcohol dependence - [facility] protocol - states he quit after last pancreatitis hospitalization - behavioral health counseling on alcohol cessation, quitting strategies +15 min . #Advance care planning Disease education conducted, care plan discussed, diagnoses discussed, prognosis discussed, patient is full code, patient acknowledges understanding and agree with care plan, +30 minutes. Dispo: Tele bed, discharge in next 24 hrs.
[2021-04-01] MEDS ORDERED: SODIUM CHLORIDE 0.9% 1000 ML 1,000 ML IV SCH (13:00)
[2021-04-01] MEDS ORDERED: LORazepam 2 MG/ML VIAL IV PRN ×2 (14:30)
[2021-04-02 06:29] LABS: Basophils % (Auto) 0.3 % (0.0-1.8); Eosinophils % (Auto) 0.6 % (0.0-4.3); Hematocrit 43.6 % (35.5-45.6); Hemoglobin 14.5 gm/dl (11.8-15.2); Lymphocytes # (Auto) 1.6 K/mm3 (1.2-5.4); Lymphocytes % (Auto) 19.3 % (13.4-35.0); Mean Corpuscular HGB Conc 33 % (32-34); Mean Corpuscular Volume 99 fl (84-94); Monocytes # (Auto) 0.9 K/mm3 (0.0-0.8); Monocytes % (Auto) 11.7 % (0.0-7.3); Platelet Count 312 K/mm3 (140-440); Red Blood Count 4.39 M/mm3 (3.65-5.03); Red Cell Distribution Width 12.7 % (13.2-15.2)
[2021-04-02 06:44] LABS: BUN/Creatinine Ratio 13; Blood Urea Nitrogen 10 mg/dL (9-20); Calcium 9.2 mg/dL (8.4-10.2); Hemolysis Index 14
--- NOTE | 2021-04-02 07:49 | Discharge Summary ---
Providers - Providers Date of Admission: 04/01/21 12:52 Date of discharge: 04/02/21 Attending physician: GOLDY NUÑEZ MD Primary care physician: CYANIDE POT HARDENER Hospitalization Reason for admission: abdominal pain, nausea/vomiting Condition: Good Hospital course: HPI: 46 yo male with pmhx of pancreatitis and alcoholism presenting to our facility for what he described as 10/10 abd pain radiating throughout his abdomen. Pain started 3 days ago and he has subsequently had a poor appetite during this time. It is associated with progressively worsening nausea, vomiting. He denied any fevers, chills, chest pain. He does state he feels fatigued due to lack of po intake. Remainder of ROS negative except for stated above. Hospital Course: Jhoan Simmons was admitted for acute pancreatitis. We treated him with IV fluids and pain control with IV morphine. Eventually his pain abated and he was able to tolerate a full diet by the end of his hospital stay. He will return back home today. No prescriptions will be necessary. Patient was given instructions to follow-up with his primary care physician as soon as he can. Assessment and plan #Acute pancreatitis - N/V/abd pain. prior admit for pancreatitis. - Lipase 1681 - CTAP confirmed acute interstitial pancreatitis - no abnl noted in gallbladder on ct. ALP in range, no bili elevation. doubt gallstone etiology - IV Fluids - IV zofran for nausea, IV morphine for pain control - NPO --> CLD --> regular diet. advance diet as tolerated. #Hyponatremia - NS IV #Dehydration - hyponatremia, hyperchloremia, hemoconcetrated - NS IV #Alcohol dependence - [facility] protocol - states he quit after last pancreatitis hospitalization - behavioral health counseling on alcohol cessation, quitting strategies +15 min . #Advance care planning Disease education conducted, care plan discussed, diagnoses discussed, prognosis discussed, patient is full code, patient acknowledges understanding and agree with care plan, +30 minutes. Dispo: Tele bed, discharge in next 24 hrs. Disposition: HOME / SELF CARE / HOMELESS Final Discharge Diagnosis (Prints w/discharge instructions): Acute Pancreatitis Time spent for discharge: 25 Core Measure Documentation - Palliative Care Palliative Care/ Comfort Measures: Not Applicable - Core Measures Any of the following diagnoses?: none Exam - Physical Exam Narrative exam: Physical Exam: VITAL SIGNS: Reviewed. GENERAL: The patient appears normally developed, Vital signs as documented. HEAD: No signs of head trauma. EYES: Pupils are equal. Extraocular motions intact. EARS: Hearing grossly intact. MOUTH: Oropharynx is normal. NECK: No adenopathy, no JVD. CHEST: Chest with clear breath sounds bilaterally. No wheezes, rales, or rhonchi. CARDIAC: Regular rate and rhythm. S1 and S2, without murmurs, gallops, or rubs. VASCULAR: No Edema. Peripheral pulses normal and equal in all extremities. ABDOMEN: Soft, non tender and non distended. No rebound or guarding, and no masses palpated. Bowel Sounds normal. MUSCULOSKELETAL: Good range of motion of all major joints. Extremities without clubbing, cyanosis or edema. NEUROLOGIC EXAM: Alert and oriented x 4. no focal sensory or strength deficits. PSYCHIATRIC: Mood normal. SKIN: detail exam as documented in skin assessment - Constitutional Vitals: Temp Pulse Resp BP Pulse Ox 98.1 F 75 17 139/87 99 04/02/21 04:09 04/02/21 04:09 04/02/21 04:09 04/02/21 04:09 04/02/21 04:09 Plan Plan of Treatment: Jhoan Simmons was admitted to our facility for acute pancreatitis. We treated him with IV fluids and pain medication. Eventually his pain abated and he was able to tolerate a full diet by the end of his hospital stay. He will return back home today. No prescriptions will be necessary. Patient was given instructions to follow-up with his primary care physician as soon as he can. He is medically cleared to return to work on Tuesday April 06, 2021. Follow up with: DELFINO DALEY MD [Primary Care Provider] - 3-5 Days
[2021-04-02 08:28] VITALS: BP 145/84
--- NOTE | 2021-04-02 08:47 | Electrocardiograph Report ---
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
[2021-04-02] MEDS ORDERED: ENOXAPARIN 40 MG/0.4 ML INJ SUB-Q SCH (10:00)
== END 2021-04-02 10:00 | disposition home or self-care (01) ==
LOC: ED 08:07 → 4A 12:52
PROVIDERS: ADMIT Internal Medicine; ATTEND Internal Medicine
DX: K85.90 Acute pancreatitis without necrosis or infection, unspecified (principal); E87.1 Hypo-osmolality and hyponatremia; E86.0 Dehydration; F10.20 Alcohol dependence, uncomplicated; F17.210 Nicotine dependence, cigarettes, uncomplicated
CPT/HCPCS: 36415; 71046; 74177; 80048; 80053; 81001; 82550; 83690; 83735; 84484; 85025; 93005; 93010; 96361; 96372; 96374; 96375; 96376; 99285; C9113; G0378; J1650; J2270; J2405; J7030; Q9967; Q0162